=== PATIENT | male | born 1960 | race Asian ===

== ENCOUNTER 2017-09-30 15:27 | Emergency (ER) | payer OTHER ==
[~2017-09-30] VITALS: Ht 165.1 cm; Wt 63.0 kg
[2017-09-30 15:41] VITALS: TEMP 98.4
[2017-09-30 16:39] LABS: PLATELET COUNT 129 K/uL (142-355)
[2017-09-30 16:44] LABS: POTASSIUM 3.6 mmol/L (3.6-5.2)
[2017-09-30 17:24] VITALS: BP 148/96
== END 2017-09-30 17:32 | disposition home or self-care (01) ==
LOC: ED 15:27
DX: M54.5 Low back pain (principal); M25.552 Pain in left hip; M51.9 Unspecified thoracic, thoracolumbar and lumbosacral intervertebral disc disorder
CPT/HCPCS: 36415; 80053; 81000; 85027; 96372; 99283; J1885

== ENCOUNTER 2018-01-31 15:24 | Emergency (ER) | payer OTHER ==
[~2018-01-31] VITALS: Ht 167.6 cm; Wt 60.8 kg
[2018-01-31 15:22] VITALS: TEMP 98.3
[2018-01-31 16:13] LABS: PLATELET COUNT 135 K/uL (142-355)
[2018-01-31 16:21] LABS: POTASSIUM 4.5 mmol/L (3.6-5.2)
[2018-01-31 16:58] VITALS: BP 155/99
== END 2018-01-31 17:02 | disposition home or self-care (01) ==
LOC: ED 15:24
DX: R25.2 Cramp and spasm (principal); K74.69 Other cirrhosis of liver
CPT/HCPCS: 36415; 80053; 80307; 81000; 83735; 85027; 99283

== ENCOUNTER 2018-05-01 19:52 | Inpatient (IN) | payer OTHER ==
[~2018-05-01] VITALS: Ht 167.6 cm; Wt 69.5 kg
[2018-05-01 20:10] VITALS: BP 117/83; TEMP 97.7
[2018-05-01 21:14] LABS: PLATELET COUNT 195 K/uL (142-355)
[2018-05-01 21:37] LABS: POTASSIUM 4.3 mmol/L (3.6-5.2)
[2018-05-02] VITALS (7 sets, daily range): BP systolic 114–161; BP diastolic 72–92; TEMP 98–99.4; Ht 167.6 cm; Wt 69.5 kg
[2018-05-02 05:52] LABS: PLATELET COUNT 150 K/uL (142-355)
[2018-05-02 06:15] LABS: POTASSIUM 4.3 mmol/L (3.6-5.2)
[2018-05-03] VITALS: BP 133/79; TEMP 98.8
[2018-05-03 04:00] VITALS: BP 142/92; TEMP 98.6
[2018-05-03 04:57] LABS: PLATELET COUNT 102 K/uL (142-355)
[2018-05-03 05:27] LABS: POTASSIUM 4.7 mmol/L (3.6-5.2)
[2018-05-03 08:00] VITALS: BP 113/73; TEMP 99.2
[2018-05-03 12:00] VITALS: BP 122/80; TEMP 99
[2018-05-03 16:05] VITALS: BP 124/88; TEMP 98.8
[2018-05-03 20:00] VITALS: BP 144/84; TEMP 98.8
[2018-05-04] VITALS (7 sets, daily range): BP systolic 142–173; BP diastolic 85–98; TEMP 98.2–99.8
[2018-05-04 04:55] LABS: PLATELET COUNT 76 K/uL (142-355)
[2018-05-04 05:10] LABS: POTASSIUM 3.9 mmol/L (3.6-5.2)
[2018-05-05 04:23] VITALS: BP 162/96; TEMP 98.7
[2018-05-05 05:30] LABS: PLATELET COUNT 87 K/uL (142-355)
[2018-05-05 05:53] LABS: POTASSIUM 3.5 mmol/L (3.6-5.2)
[2018-05-05 08:00] VITALS: BP 163/91; TEMP 98.1
[2018-05-05] MEDS ORDERED: FOLI1TAB26 PO (09:47)
[2018-05-05] MEDS ORDERED: METO-837 PO (09:48)
[2018-05-05] MEDS ORDERED: LISI20TA11 PO (09:48)
[2018-05-05] MEDS ORDERED: SIMV20TA2 PO (09:48)
[2018-05-05] MEDS ORDERED: MULTTAB52 PO (09:49)
== END 2018-05-05 11:01 | disposition home or self-care (01) | DRG 439 ==
LOC: ED 19:52 → MED/SURG 21:55
PROVIDERS: Emergency Medicine; Family Medicine; ADMIT Internal Medicine
DX: K85.90 Acute pancreatitis without necrosis or infection, unspecified (principal); N17.8 Other acute kidney failure; N18.3 Chronic kidney disease, stage 3 (moderate); E87.1 Hypo-osmolality and hyponatremia; K56.690 Other partial intestinal obstruction; E44.0 Moderate protein-calorie malnutrition; D61.818 Other pancytopenia; D52.9 Folate deficiency anemia, unspecified; R74.8 Abnormal levels of other serum enzymes; E88.09 Other disorders of plasma-protein metabolism, not elsewhere classified; E78.49 Other hyperlipidemia; R19.09 Other intra-abdominal and pelvic swelling, mass and lump; F10.129 Alcohol abuse with intoxication, unspecified; I12.9 Hypertensive chronic kidney disease with stage 1 through stage 4 chronic kidney disease, or unspecified chronic kidney disease; R73.9 Hyperglycemia, unspecified
CPT/HCPCS: 36415; 74022; 80053; 80061; 81000; 82150; 83036; 83690; 85027; 85651; 86140; 87070; 87205; 93005; 96365; 96374; 96375; 99284; J0360; J1650; J2270; J2405; J3490

== ENCOUNTER 2018-08-21 12:04 | Outpatient (CLI) | payer OTHER ==
[~2018-08-21 12:04] MED LIST: FOLI1TAB26 PO; LISI20TA11 PO; METO-837 PO; MULTTAB52 PO; SIMV20TA2 PO
== END 2018-08-21 20:41 | disposition home or self-care (01) ==
LOC: MRI 12:04
DX: M54.5 Low back pain (principal); M51.36 Other intervertebral disc degeneration, lumbar region; M16.11 Unilateral primary osteoarthritis, right hip; M54.17 Radiculopathy, lumbosacral region; M51.27 Other intervertebral disc displacement, lumbosacral region; R29.898 Other symptoms and signs involving the musculoskeletal system

== ENCOUNTER 2018-09-19 18:03 | Emergency (ER) | payer OTHER ==
[~2018-09-19] VITALS: Ht 167.6 cm; Wt 69.4 kg
[2018-09-19 18:18] VITALS: BP 94/67; TEMP 98
[2018-09-19 20:38] LABS: PLATELET COUNT 134 K/uL (142-355)
[2018-09-19 20:55] LABS: POTASSIUM 3.5 mmol/L (3.6-5.2); SODIUM 131 mmol/L (136-145)
== END 2018-09-19 23:07 | disposition home or self-care (01) ==
LOC: ED 18:03
PROVIDERS: Emergency Medicine
DX: K86.1 Other chronic pancreatitis (principal)
CPT/HCPCS: 36415; 80053; 80307; 80320; 81000; 82150; 82550; 83690; 83735; 84484; 85027; 93005; 96365; 99283; J3490

== ENCOUNTER 2018-09-29 20:06 | Observation (INO) | payer OTHER ==
[~2018-09-29] VITALS: Ht 167.6 cm; Wt 64.9 kg
[2018-09-29 20:35] VITALS: BP 145/98; TEMP 98.3
[2018-09-29 21:31] LABS: PLATELET COUNT 232 K/uL (142-355)
[2018-09-29 21:49] LABS: POTASSIUM 4.8 mmol/L (3.6-5.2)
[2018-09-30 01:35] VITALS: BP 144/90; TEMP 97.6; Ht 167.6 cm; Wt 64.9 kg
[2018-09-30] MEDS ORDERED: FERROUSUL325 MG PO (02:07)
[2018-09-30] MEDS ORDERED: IBU800 MG PO (02:13)
[2018-09-30 04:00] VITALS: BP 146/90; TEMP 97.4
[2018-09-30 06:18] LABS: POTASSIUM 4.2 mmol/L (3.6-5.2)
[2018-09-30 08:00] VITALS: BP 153/96; TEMP 98
[2018-09-30 12:00] VITALS: BP 156/88; TEMP 97.4
[2018-09-30 16:00] VITALS: BP 145/93; TEMP 98.2
[2018-09-30 20:00] VITALS: BP 153/96; TEMP 98.2
[2018-10-01 00:13] VITALS: BP 158/101; TEMP 97.9
[2018-10-01 04:00] VITALS: BP 156/107; TEMP 98.2
[2018-10-01 08:00] VITALS: TEMP 97.6
[2018-10-01 09:45] LABS: POTASSIUM 2.9 mmol/L (3.6-5.2)
[2018-10-01 09:47] LABS: PLATELET COUNT 157 K/uL (142-355)
[2018-10-01 12:00] VITALS: BP 140/100; TEMP 98.1
== END 2018-10-01 14:50 | disposition home or self-care (01) ==
LOC: ED 20:06 → MED/SURG 09-30 00:25
PROVIDERS: Internal Medicine; ADMIT Emergency Medicine
DX: E86.0 Dehydration (principal); E87.1 Hypo-osmolality and hyponatremia; I10 Essential (primary) hypertension; F10.229 Alcohol dependence with intoxication, unspecified; E87.6 Hypokalemia; E78.49 Other hyperlipidemia; E16.1 Other hypoglycemia; K70.9 Alcoholic liver disease, unspecified
CPT/HCPCS: 36415; 80048; 80053; 81000; 82150; 82550; 83690; 83735; 85027; 96360; 96365; 96366; 96375; 99220; 99284; G0378; J7060

== ENCOUNTER 2018-11-10 15:11 | Inpatient (IN) | payer OTHER ==
[~2018-11-10] VITALS: Ht 175.3 cm; Wt 64.2 kg
[~2018-11-10 15:11] MED LIST changes: +FERROUSUL325 MG PO; +IBU800 MG PO
[2018-11-10 15:30] VITALS: BP 143/107; TEMP 97.2
[2018-11-10 17:36] LABS: PLATELET COUNT 131 K/uL (142-355)
[2018-11-10 17:49] LABS: POTASSIUM 5.5 mmol/L (3.6-5.2)
[2018-11-10 21:00] VITALS: BP 145/97; TEMP 97.1
[2018-11-10 21:46] VITALS: BP 149/92; TEMP 98.7; Ht 175.3 cm; Wt 64.2 kg
[2018-11-11] VITALS (7 sets, daily range): BP systolic 109–165; BP diastolic 46–105; TEMP 98.2–99.2
[2018-11-11 05:26] LABS: PLATELET COUNT 91 K/uL (142-355)
[2018-11-11] MEDS ORDERED: LOVASTATIN40 MG PO (11:24)
[2018-11-11] MEDS ORDERED: KP FOLIC ACID1 MG PO (11:25)
[2018-11-12 04:00] VITALS: BP 160/90; TEMP 98.1
[2018-11-12 05:30] LABS: PLATELET COUNT 72 K/uL (142-355)
[2018-11-12 05:35] LABS: POTASSIUM 3.6 mmol/L (3.6-5.2)
[2018-11-12 08:00] VITALS: BP 125/69; TEMP 98.4
[2018-11-12 12:00] VITALS: BP 154/99; TEMP 98.2
[2018-11-12 16:00] VITALS: BP 131/81; TEMP 98.3
[2018-11-12 20:00] VITALS: BP 141/85; TEMP 98.9
[2018-11-13] VITALS: BP 137/86; TEMP 98.4
[2018-11-13 04:00] VITALS: BP 151/95; TEMP 98.2
[2018-11-13 06:41] LABS: PLATELET COUNT 78 K/uL (142-355)
[2018-11-13 08:00] VITALS: BP 155/96; TEMP 98.1
[2018-11-13 16:00] VITALS: BP 170/90; TEMP 98.3
[2018-11-13 19:55] VITALS: BP 176/98; TEMP 97.9
[2018-11-13 23:46] VITALS: BP 140/86; TEMP 98.5
[2018-11-14 03:56] VITALS: BP 158/98; TEMP 98.6
[2018-11-14 05:31] LABS: PLATELET COUNT 95 K/uL (142-355)
[2018-11-14 06:35] LABS: POTASSIUM 3.1 mmol/L (3.6-5.2)
[2018-11-14 08:00] VITALS: BP 160/105; TEMP 98.4
[2018-11-14 12:00] VITALS: BP 157/104; TEMP 98.1
== END 2018-11-14 14:30 | disposition home or self-care (01) | DRG 439 ==
LOC: ED 15:11 → MED/SURG 20:30
PROVIDERS: Family Medicine; Internal Medicine; ADMIT Emergency Medicine
DX: K85.20 Alcohol induced acute pancreatitis without necrosis or infection (principal); E87.1 Hypo-osmolality and hyponatremia; E87.2 Acidosis; N17.8 Other acute kidney failure; I10 Essential (primary) hypertension; I25.10 Atherosclerotic heart disease of native coronary artery without angina pectoris; K70.30 Alcoholic cirrhosis of liver without ascites; F10.10 Alcohol abuse, uncomplicated; E80.6 Other disorders of bilirubin metabolism; K70.40 Alcoholic hepatic failure without coma; E87.6 Hypokalemia; E86.0 Dehydration; K86.0 Alcohol-induced chronic pancreatitis
CPT/HCPCS: 36415; 80053; 80320; 81000; 82150; 83690; 83735; 85027; 96360; 96365; 99284; J3411; J3490; Q9963

== ENCOUNTER 2018-11-27 13:37 | Emergency (ER) | payer OTHER ==
[~2018-11-27] VITALS: Ht 162.6 cm; Wt 61.2 kg
[~2018-11-27 13:37] MED LIST changes: +KP FOLIC ACID1 MG PO; +LOVASTATIN40 MG PO
[2018-11-27 13:40] VITALS: TEMP 99.1
[2018-11-27 17:30] VITALS: BP 163/102
== END 2018-11-27 17:35 | disposition home or self-care (01) ==
LOC: ED 13:37
PROC: 0KQ10ZZ Repair Facial Muscle, Open Approach (ICD-10-PCS; principal; 2018-11-27)
DX: S01.81XA Laceration without foreign body of other part of head, initial encounter (principal); S09.12XA Laceration of muscle and tendon of head, initial encounter; W01.198A Fall on same level from slipping, tripping and stumbling with subsequent striking against other object, initial encounter; Y92.89 Other specified places as the place of occurrence of the external cause
CPT/HCPCS: 90471; 90715; 99283

== ENCOUNTER 2018-12-08 09:41 | Emergency (ER) | payer OTHER ==
[~2018-12-08] VITALS: Ht 162.6 cm; Wt 61.2 kg
[2018-12-08 11:55] VITALS: BP 136/81; TEMP 98
== END 2018-12-08 11:55 | disposition home or self-care (01) ==
LOC: ED 09:41
DX: Z48.02 Encounter for removal of sutures (principal)

== ENCOUNTER 2019-03-23 15:37 | Emergency (ER) | payer OTHER ==
[~2019-03-23] VITALS: Ht 167.6 cm; Wt 61.2 kg
[2019-03-23 16:51] LABS: PLATELET COUNT 114 K/uL (142-355)
[2019-03-23 16:55] LABS: POTASSIUM 3.3 mmol/L (3.6-5.2)
[2019-03-23 18:30] VITALS: BP 144/72; TEMP 98.1
== END 2019-03-23 18:30 | disposition home or self-care (01) ==
LOC: ED 15:37
PROVIDERS: Emergency Medicine
DX: S90.852A Superficial foreign body, left foot, initial encounter (principal); M10.9 Gout, unspecified; L03.116 Cellulitis of left lower limb
CPT/HCPCS: 80053; 84550; 85027; 96372; 99283; J0696; J2930

== ENCOUNTER 2019-04-18 16:23 | Emergency (ER) | payer OTHER ==
[~2019-04-18] VITALS: Ht 33 cm; Wt 0.5 kg
[2019-04-18 17:21] LABS: PLATELET COUNT 131 K/uL (142-355)
[2019-04-18 18:56] LABS: POTASSIUM 5.2 mmol/L (3.6-5.2); SODIUM 135 mmol/L (136-145)
[2019-04-19 00:54] VITALS: BP 135/73; TEMP 99
== END 2019-04-19 00:55 | disposition short-term general hospital (02) ==
LOC: ED 16:23
PROVIDERS: Emergency Medicine
DX: I48.92 Unspecified atrial flutter (principal); F10.239 Alcohol dependence with withdrawal, unspecified
CPT/HCPCS: 80053; 80320; 82550; 83735; 83880; 84484; 85027; 93005; 96361; 96365; 96375; 96376; 99285; J2060; J3490

== ENCOUNTER 2019-04-19 00:58 | Outpatient (CLI) | payer OTHER | END 2019-04-19 01:28 | disposition short-term general hospital (02) | LOC: AMB 00:58 | DX: I48.92 Unspecified atrial flutter (principal); R94.31 Abnormal electrocardiogram [ECG] [EKG] | CPT/HCPCS: A0425; A0427 ==

== ENCOUNTER 2020-02-08 05:48 | Observation (INO) | payer OTHER ==
[~2020-02-08] VITALS: Ht 162.6 cm; Wt 67.8 kg
[2020-02-08] VITALS (12 sets, daily range): BP systolic 88–132; BP diastolic 44–94; TEMP 95.3–98.3; Ht 162.6 cm; Wt 67.8 kg
[2020-02-08 06:38] LABS: PLATELET COUNT 150 K/uL (142-355)
[2020-02-08 06:48] LABS: POTASSIUM 4.4 mmol/L (3.6-5.2); SODIUM 126 mmol/L (136-145)
[2020-02-08] MEDS ORDERED: METO50TA27 PO (17:06)
[2020-02-08] MEDS ORDERED: ZESTRIL40 MG PO (17:07)
[2020-02-08] MEDS ORDERED: DILT-XR180 MG PO (17:08)
[2020-02-08] MEDS ORDERED: KP FOLIC ACID1 MG PO (17:09)
[2020-02-09 00:14] VITALS: BP 122/64; TEMP 98.3
[2020-02-09 04:00] VITALS: BP 127/83; TEMP 97.9
[2020-02-09 05:47] LABS: PLATELET COUNT 96 K/uL (142-355)
[2020-02-09 05:58] LABS: POTASSIUM 4.5 mmol/L (3.6-5.2)
[2020-02-09 08:00] VITALS: BP 157/79; TEMP 97.6
[2020-02-09 12:00] VITALS: BP 107/74; TEMP 97.8
[2020-02-09 16:00] VITALS: BP 168/83; TEMP 98.5
[2020-02-09 20:00] VITALS: BP 142/91; TEMP 98.3
[2020-02-10] VITALS: BP 142/75; TEMP 98.5
[2020-02-10 04:00] VITALS: BP 161/77; TEMP 98.6
[2020-02-10 04:47] LABS: PLATELET COUNT 89 K/uL (142-355)
[2020-02-10 08:00] VITALS: BP 152/83; TEMP 98.2
[2020-02-10 11:36] LABS: POTASSIUM 4.1 mmol/L (3.6-5.2)
[2020-02-10 12:00] VITALS: BP 162/78; TEMP 98.2
[2020-02-10 16:00] VITALS: BP 162/87; TEMP 98.8
[2020-02-10] MEDS ORDERED: LISI20TA11 PO (16:27)
[2020-02-10] MEDS ORDERED: DILT-XR120 MG PO (16:27)
[2020-02-10] MEDS ORDERED: METO-837 PO (16:29)
[2020-02-10] MEDS ORDERED: LEVAQUIN250 MG PO (16:30)
== END 2020-02-10 17:30 | disposition home or self-care (01) ==
LOC: ED 05:48 → MED/SURG 08:00
PROVIDERS: Internal Medicine; ADMIT Family Medicine
DX: A41.89 Other specified sepsis (principal); E87.2 Acidosis; E87.1 Hypo-osmolality and hyponatremia; D69.6 Thrombocytopenia, unspecified; I10 Essential (primary) hypertension; F10.20 Alcohol dependence, uncomplicated; T68.XXXA Hypothermia, initial encounter; N17.8 Other acute kidney failure
CPT/HCPCS: 36415; 80048; 80053; 80320; 82150; 83605; 83690; 83735; 84484; 85027; 85379; 87040; 87635; 93005; 96360; 96365; 96375; 99220; 99284; G0378; J0696; J3490; J7060; U0003

== ENCOUNTER 2020-05-09 12:42 | Outpatient (CLI) | payer OTHER ==
[~2020-05-09 12:42] MED LIST changes: +DILT-XR120 MG PO; +DILT-XR180 MG PO; +LEVAQUIN250 MG PO; +METO50TA27 PO; +ZESTRIL40 MG PO
== END 2020-05-09 21:39 | disposition home or self-care (01) ==
LOC: US 12:42
PROVIDERS: ATTEND Student in an Organized Health Care Education/Training Program
DX: N17.9 Acute kidney failure, unspecified (principal); I10 Essential (primary) hypertension; E78.49 Other hyperlipidemia

== ENCOUNTER 2020-06-21 09:32 | Outpatient (CLI) | payer OTHER ==
[2020-06-21 10:03] LABS: PLATELET COUNT 158 K/uL (142-355)
[2020-06-21 10:12] LABS: POTASSIUM 5.4 mmol/L (3.6-5.2)
== END 2020-06-21 21:30 | disposition home or self-care (01) ==
LOC: LABW 09:32
PROVIDERS: ATTEND Student in an Organized Health Care Education/Training Program
DX: N17.9 Acute kidney failure, unspecified (principal); E87.1 Hypo-osmolality and hyponatremia
CPT/HCPCS: 36415; 80053; 80074; 81000; 82043; 82306; 82436; 82533; 82570; 83036; 83735; 83930; 83935; 83970; 84100; 84133; 84155; 84300; 84436; 84443; 84550; 85027; 86038; 86160; 86592; 86701; 86702; 87389

== ENCOUNTER 2020-06-30 07:45 | Emergency (ER) | payer OTHER ==
[~2020-06-30] VITALS: Ht 162.6 cm; Wt 67.6 kg
[2020-06-30 08:36] LABS: PLATELET COUNT 121 K/uL (142-355)
[2020-06-30 08:50] LABS: POTASSIUM 4.6 mmol/L (3.6-5.2); SODIUM 132 mmol/L (136-145)
[2020-06-30 08:59] LABS: PARTIAL THROMBOPLASTIN TIME 25.9 SECONDS (24.5-33.6)
[2020-06-30 09:45] VITALS: BP 130/93; TEMP 98.2
== END 2020-06-30 09:52 | disposition home or self-care (01) ==
LOC: ED 07:45
PROVIDERS: Hospitalist
DX: R07.89 Other chest pain (principal); M25.512 Pain in left shoulder; N18.9 Chronic kidney disease, unspecified
CPT/HCPCS: 80053; 82550; 82553; 83880; 84484; 85027; 85610; 85730; 93005; 96374; 96375; 99284; J1885; J2930

== ENCOUNTER 2020-08-18 13:00 | Emergency (ER) | payer OTHER ==
[~2020-08-18] VITALS: Ht 162.6 cm; Wt 67.6 kg
[2020-08-18 13:15] VITALS: TEMP 97.9
[2020-08-18 14:00] LABS: PLATELET COUNT 171 K/uL (142-355)
[2020-08-18 14:09] LABS: POTASSIUM 4.6 mmol/L (3.6-5.2)
[2020-08-18 14:22] LABS: PARTIAL THROMBOPLASTIN TIME 25.7 SECONDS (24.5-33.6)
[2020-08-18 14:30] VITALS: BP 98/60
== END 2020-08-18 14:30 | disposition home or self-care (01) ==
LOC: ED 13:00
PROVIDERS: Hospitalist
DX: K64.4 Residual hemorrhoidal skin tags (principal)
CPT/HCPCS: 80048; 85027; 85610; 85730; 99283

== ENCOUNTER 2020-08-26 10:09 | Outpatient (CLI) | payer OTHER ==
[2020-08-26 10:43] LABS: PLATELET COUNT 90 K/uL (142-355)
[2020-08-26 10:58] LABS: POTASSIUM 4.6 mmol/L (3.6-5.2)
== END 2020-08-26 19:28 | disposition home or self-care (01) ==
LOC: LABW 10:09
PROVIDERS: ATTEND Student in an Organized Health Care Education/Training Program
DX: E87.1 Hypo-osmolality and hyponatremia (principal); Z79.899 Other long term (current) drug therapy; E11.65 Type 2 diabetes mellitus with hyperglycemia; E55.9 Vitamin D deficiency, unspecified; E78.5 Hyperlipidemia, unspecified
CPT/HCPCS: 36415; 80053; 81000; 82570; 83036; 83735; 83970; 84155; 85027

== ENCOUNTER 2020-12-07 17:49 | Emergency (ER) | payer OTHER ==
[~2020-12-07] VITALS: Ht 162.6 cm; Wt 67.6 kg
[2020-12-07 19:38] LABS: PLATELET COUNT 206 K/uL (142-355)
[2020-12-07 19:49] LABS: POTASSIUM 4.1 mmol/L (3.6-5.2)
[2020-12-07 21:10] VITALS: BP 112/59; TEMP 97.6
== END 2020-12-07 21:10 | disposition home or self-care (01) ==
LOC: ED 17:49
PROVIDERS: Family Medicine
DX: E16.1 Other hypoglycemia (principal); E86.0 Dehydration; I48.91 Unspecified atrial fibrillation
CPT/HCPCS: 36415; 80053; 80320; 82550; 82948; 84484; 85027; 93005; 96360; 96365; 96375; 99284; J2405; J7060

== ENCOUNTER 2021-03-14 16:15 | Emergency (ER) | payer OTHER ==
[~2021-03-14] VITALS: Ht 162.6 cm; Wt 67.6 kg
[2021-03-14 16:28] VITALS: TEMP 97.6
[2021-03-14 17:17] LABS: PLATELET COUNT 122 K/uL (142-355)
[2021-03-14 17:33] LABS: POTASSIUM 3.4 mmol/L (3.6-5.2)
[2021-03-14 18:31] VITALS: BP 143/83
== END 2021-03-14 18:58 | disposition short-term general hospital (02) ==
LOC: ED 16:15
PROVIDERS: Emergency Medicine Emergency Medical Services
DX: R07.89 Other chest pain (principal); N17.8 Other acute kidney failure; Z91.81 History of falling; Z11.52 Encounter for screening for COVID-19
CPT/HCPCS: 36415; 80053; 80320; 83735; 84484; 85027; 85610; 87635; 93005; 96360; 99284; U0003

== ENCOUNTER 2021-05-04 19:51 | Inpatient (IN) | payer OTHER ==
[~2021-05-04] VITALS: Ht 162.6 cm; Wt 73.1 kg
[2021-05-04 19:55] VITALS: BP 109/74; TEMP 98.4
[2021-05-04 20:34] LABS: PLATELET COUNT 99 K/uL (142-355)
[2021-05-04 20:40] LABS: POTASSIUM 3.3 mmol/L (3.6-5.2)
[2021-05-04 21:00] VITALS: BP 114/76
[2021-05-04 22:52] VITALS: BP 132/73; TEMP 98.2; Ht 162.6 cm; Wt 73.1 kg
[2021-05-04 23:34] VITALS: BP 132/73; TEMP 98.2
[2021-05-05 04:19] VITALS: BP 110/72; TEMP 99.5
[2021-05-05 08:00] VITALS: BP 130/77; TEMP 97.9
[2021-05-05] MEDS ORDERED: METO50TA27 PO (11:15)
[2021-05-05] MEDS ORDERED: FEROSUL325 MG PO (11:18)
[2021-05-05 12:00] VITALS: BP 124/72; TEMP 99.3
[2021-05-05 16:00] VITALS: BP 128/97; TEMP 98.4
[2021-05-05 17:44] LABS: POTASSIUM 4.6 mmol/L (3.6-5.2)
[2021-05-05 20:00] VITALS: BP 150/84; TEMP 99.8
[2021-05-05 21:18] VITALS: BP 150/84; TEMP 99.8
[2021-05-06] VITALS: BP 142/85; TEMP 100.3
[2021-05-06 00:59] LABS: POTASSIUM 4.2 mmol/L (3.6-5.2)
[2021-05-06 04:00] VITALS: BP 138/79; TEMP 99.6
[2021-05-06 05:26] LABS: PLATELET COUNT 46 K/uL (142-355)
[2021-05-06 05:33] LABS: POTASSIUM 4.2 mmol/L (3.6-5.2)
[2021-05-06 08:00] VITALS: BP 150/86; TEMP 99.3
[2021-05-06 12:00] VITALS: BP 138/80; TEMP 100
[2021-05-06 16:00] VITALS: BP 136/82; TEMP 98.8
[2021-05-06 20:00] VITALS: BP 134/84; TEMP 98.9
[2021-05-07 00:05] VITALS: BP 164/96; TEMP 99
[2021-05-07 04:00] VITALS: BP 153/86; TEMP 99.1
[2021-05-07 04:58] LABS: PLATELET COUNT 57 K/uL (142-355)
[2021-05-07 05:09] LABS: POTASSIUM 4.3 mmol/L (3.6-5.2)
[2021-05-07 08:00] VITALS: BP 141/82; TEMP 98.5
[2021-05-07 12:00] VITALS: BP 141/82; TEMP 98.5
[2021-05-07 16:00] VITALS: BP 153/92; TEMP 99.1
[2021-05-07 20:00] VITALS: BP 145/85; TEMP 98.9
[2021-05-08] VITALS: BP 157/89; TEMP 99.2
[2021-05-08 04:00] VITALS: BP 158/91; TEMP 99.8
[2021-05-08 05:29] LABS: PLATELET COUNT 74 K/uL (142-355)
[2021-05-08 08:00] VITALS: BP 157/85; TEMP 97
[2021-05-08 12:00] VITALS: BP 151/90; TEMP 99.2
[2021-05-08 16:00] VITALS: BP 164/95; TEMP 98.6
[2021-05-08 19:38] VITALS: BP 165/96; TEMP 99.2
[2021-05-09 00:10] VITALS: BP 163/92; TEMP 99.8
[2021-05-09 04:05] VITALS: BP 157/93; TEMP 98.9
[2021-05-09 06:01] LABS: POTASSIUM 4.2 mmol/L (3.6-5.2)
[2021-05-09 08:00] VITALS: BP 160/89; TEMP 98.8
[2021-05-09 09:21] LABS: PLATELET COUNT 102 K/uL (142-355)
[2021-05-09] MEDS ORDERED: METO25TA4 PO (11:19)
== END 2021-05-09 12:25 | disposition home or self-care (01) | DRG 439 ==
LOC: ED 19:51 → MED/SURG 22:00
PROVIDERS: ADMIT Hospitalist; ATTEND Internal Medicine
DX: K85.20 Alcohol induced acute pancreatitis without necrosis or infection (principal); E87.1 Hypo-osmolality and hyponatremia; N17.8 Other acute kidney failure; E87.6 Hypokalemia; K70.9 Alcoholic liver disease, unspecified; F10.20 Alcohol dependence, uncomplicated; R00.0 Tachycardia, unspecified; D69.6 Thrombocytopenia, unspecified
CPT/HCPCS: 36415; 80053; 80320; 81000; 83690; 84484; 85008; 85027; 87040; 87635; 93005; 94760; 96360; 96375; 99284; J0132; J1956; J2270; J2405; J3490; U0003

== ENCOUNTER 2021-06-10 07:25 | Emergency (ER) | payer OTHER ==
[~2021-06-10] VITALS: Ht 162.6 cm; Wt 63.0 kg
[~2021-06-10 07:25] MED LIST changes: +FEROSUL325 MG PO; +METO25TA4 PO
[2021-06-10 08:14] LABS: PLATELET COUNT 200 K/uL (142-355)
[2021-06-10 08:22] LABS: PARTIAL THROMBOPLASTIN TIME 27.9 SECONDS (24.5-33.6); POTASSIUM 2.7 mmol/L (3.6-5.2)
[2021-06-10 10:04] VITALS: BP 151/98; TEMP 98
== END 2021-06-10 10:07 | disposition still patient (30) ==
LOC: ED 07:25
PROVIDERS: Hospitalist
DX: R60.0 Localized edema (principal); E87.6 Hypokalemia; I50.9 Heart failure, unspecified; R79.89 Other specified abnormal findings of blood chemistry; K74.69 Other cirrhosis of liver
CPT/HCPCS: 80053; 82550; 83880; 84484; 85027; 85610; 85730; 93005; 96365; 99284

== ENCOUNTER 2021-06-12 10:54 | Outpatient (CLI) | payer OTHER ==
[2021-06-12 11:19] LABS: PLATELET COUNT 217 K/uL (142-355)
== END 2021-06-12 20:25 | disposition home or self-care (01) ==
LOC: LABW 10:54
PROVIDERS: ATTEND Student in an Organized Health Care Education/Training Program
DX: I12.9 Hypertensive chronic kidney disease with stage 1 through stage 4 chronic kidney disease, or unspecified chronic kidney disease (principal); N18.31 Chronic kidney disease, stage 3a; E87.1 Hypo-osmolality and hyponatremia; E55.9 Vitamin D deficiency, unspecified; E87.5 Hyperkalemia; E79.0 Hyperuricemia without signs of inflammatory arthritis and tophaceous disease; E87.2 Acidosis
CPT/HCPCS: 36415; 80053; 81000; 82306; 82570; 83735; 83970; 84100; 84155; 84550; 85027

== ENCOUNTER 2022-03-08 09:16 | Outpatient (CLI) | payer OTHER ==
[2022-03-08 10:37] LABS: POTASSIUM 5.3 mmol/L (3.6-5.2)
== END 2022-03-08 19:38 | disposition home or self-care (01) ==
LOC: LABW 09:16
PROVIDERS: ATTEND Student in an Organized Health Care Education/Training Program
DX: I12.9 Hypertensive chronic kidney disease with stage 1 through stage 4 chronic kidney disease, or unspecified chronic kidney disease (principal); N18.31 Chronic kidney disease, stage 3a; E87.1 Hypo-osmolality and hyponatremia; E55.9 Vitamin D deficiency, unspecified; E87.5 Hyperkalemia; E79.0 Hyperuricemia without signs of inflammatory arthritis and tophaceous disease; D63.1 Anemia in chronic kidney disease; R80.8 Other proteinuria
CPT/HCPCS: 36415; 80053; 81002; 82306; 82570; 83735; 83970; 84100; 84156; 84550; 85018

== ENCOUNTER 2022-06-06 04:37 | Observation (INO) | payer OTHER ==
[2022-06-06] VITALS (13 sets, daily range): BP systolic 78–110; BP diastolic 44–68; TEMP 97.5–98.8; Ht 170.2 cm; Wt 67.4 kg
[~2022-06-06] VITALS: Ht 170.2 cm; Wt 67.4 kg
[2022-06-06 05:40] LABS: PLATELET COUNT 70 K/uL (142-355)
[2022-06-06 05:56] LABS: POTASSIUM 3.7 mmol/L (3.6-5.2)
[2022-06-06 09:48] LABS: POTASSIUM 4.1 mmol/L (3.6-5.2)
[2022-06-06] MEDS ORDERED: METO50TA27 PO (13:49)
[2022-06-06] MEDS ORDERED: ALLO100T22 PO (13:50)
[2022-06-06] MEDS ORDERED: DILT-XR120 MG PO (15:07)
[2022-06-07] VITALS (7 sets, daily range): BP systolic 107–140; BP diastolic 65–80; TEMP 98.2–98.8
[2022-06-07 05:20] LABS: PLATELET COUNT 47 K/uL (142-355)
[2022-06-07 05:34] LABS: POTASSIUM 3.8 mmol/L (3.6-5.2)
[2022-06-08 03:31] VITALS: BP 131/82; TEMP 98.6
[2022-06-08 04:28] LABS: PLATELET COUNT 62 K/uL (142-355)
[2022-06-08 04:55] LABS: POTASSIUM 3.7 mmol/L (3.6-5.2)
[2022-06-08 08:00] VITALS: BP 134/85; TEMP 99
[2022-06-08 12:00] VITALS: BP 144/75; TEMP 98.3
[2022-06-08] MEDS ORDERED: METO-837 PO (12:44)
== END 2022-06-08 14:42 | disposition home or self-care (01) ==
LOC: ED 04:37 → MED/SURG 06:35
PROVIDERS: ADMIT Emergency Medicine; ATTEND Internal Medicine
DX: E87.1 Hypo-osmolality and hyponatremia (principal); D61.818 Other pancytopenia; I95.89 Other hypotension; R00.1 Bradycardia, unspecified; R11.2 Nausea with vomiting, unspecified; A08.8 Other specified intestinal infections; K21.9 Gastro-esophageal reflux disease without esophagitis; K86.0 Alcohol-induced chronic pancreatitis; F10.288 Alcohol dependence with other alcohol-induced disorder; E78.49 Other hyperlipidemia; D64.89 Other specified anemias; K70.30 Alcoholic cirrhosis of liver without ascites; I12.9 Hypertensive chronic kidney disease with stage 1 through stage 4 chronic kidney disease, or unspecified chronic kidney disease; N18.4 Chronic kidney disease, stage 4 (severe); N17.8 Other acute kidney failure
CPT/HCPCS: 36415; 80053; 80074; 80307; 80320; 81002; 82150; 82550; 82607; 82728; 82746; 83540; 83690; 83735; 84484; 85008; 85027; 87635; 93005; 96360; 96361; 96374; 99220; 99284; G0378; J3411; J3475; J3490; U0003

== ENCOUNTER 2022-07-31 14:11 | Emergency (ER) | payer OTHER ==
[~2022-07-31] VITALS: Ht 170.2 cm; Wt 59.9 kg
[~2022-07-31 14:11] MED LIST changes: +ALLO100T22 PO
[2022-07-31 14:15] VITALS: BP 138/89; TEMP 97.8
== END 2022-07-31 16:02 | disposition home or self-care (01) ==
LOC: ED 14:11
DX: M54.59 Other low back pain (principal); G89.29 Other chronic pain; M51.36 Other intervertebral disc degeneration, lumbar region
CPT/HCPCS: 80307; 96372; 99283; J1885

== ENCOUNTER 2022-08-31 10:36 | Emergency (ER) | payer OTHER ==
[~2022-08-31] VITALS: Ht 170.2 cm; Wt 69.4 kg
[2022-08-31 10:54] VITALS: TEMP 98.7
[2022-08-31 11:22] LABS: PLATELET COUNT 153 K/uL (142-355)
[2022-08-31 11:30] LABS: POTASSIUM 3.4 mmol/L (3.6-5.2)
[2022-08-31 12:50] VITALS: BP 166/92
== END 2022-08-31 12:50 | disposition home or self-care (01) ==
LOC: ED 10:36
PROVIDERS: Internal Medicine
DX: I10 Essential (primary) hypertension (principal)
CPT/HCPCS: 36415; 80053; 80307; 83880; 85027; 93005; 99284

== ENCOUNTER 2022-12-15 07:06 | Emergency (ER) | payer OTHER ==
[~2022-12-15] VITALS: Ht 170.2 cm; Wt 63.0 kg
[2022-12-15 07:15] VITALS: TEMP 98.1
[2022-12-15 09:30] VITALS: BP 125/75
== END 2022-12-15 09:38 | disposition home or self-care (01) ==
LOC: ED 07:06
DX: T78.40XA Allergy, unspecified, initial encounter (principal); F17.210 Nicotine dependence, cigarettes, uncomplicated
CPT/HCPCS: 36415; 96361; 96374; 96375; 99284; J1200; J2405; J2930

== ENCOUNTER 2022-12-17 07:31 | Emergency (ER) | payer OTHER ==
[~2022-12-17] VITALS: Ht 162.6 cm; Wt 63.0 kg
[2022-12-17 07:37] VITALS: BP 122/77; TEMP 98.3
== END 2022-12-17 08:54 | disposition home or self-care (01) ==
LOC: ED 07:31
DX: L50.9 Urticaria, unspecified (principal); L20.9 Atopic dermatitis, unspecified
CPT/HCPCS: 36415; 96365; 96366; 96372; 96375; 99283; 99284; J1200

== ENCOUNTER 2023-01-16 06:50 | Inpatient (IN) | payer OTHER ==
[~2023-01-16] VITALS: Ht 167.6 cm; Wt 73.1 kg
[~2023-01-16 06:50] MED LIST changes: +MAGN400T4 PO
[2023-01-16 07:02] VITALS: BP 128/78; TEMP 98.2
[2023-01-16 07:30] VITALS: BP 114/58
[2023-01-16 07:57] LABS: POTASSIUM 2.9 mmol/L (3.6-5.2)
[2023-01-16 08:15] VITALS: BP 116/67
[2023-01-16 08:52] LABS: PLATELET COUNT 55 K/uL (142-355)
[2023-01-16 09:55] VITALS: BP 110/72
[2023-01-16 17:45] VITALS: BP 107/68; TEMP 97.8; Ht 167.6 cm; Wt 73.1 kg
[2023-01-16 20:00] VITALS: BP 114/62; TEMP 98.2
[2023-01-16] MEDS ORDERED: VITAMIN D50000 UNIT PO (20:38)
[2023-01-16] MEDS ORDERED: METO50TA27 PO (20:38)
[2023-01-16] MEDS ORDERED: DILTIAZEM HYDR120 M2 PO (20:39)
[2023-01-16] MEDS ORDERED: CLARITIN10 M1 PO (20:39)
[2023-01-17] VITALS: BP 111/67; TEMP 98.5
[2023-01-17 04:00] VITALS: BP 121/69; TEMP 97.3
[2023-01-17 07:56] LABS: PLATELET COUNT 56 K/uL (142-355)
[2023-01-17 08:00] VITALS: BP 118/71; TEMP 98
[2023-01-17 08:30] LABS: POTASSIUM 4.2 mmol/L (3.6-5.2)
[2023-01-17 12:00] VITALS: BP 124/74; TEMP 98.1
[2023-01-17 16:00] VITALS: BP 168/78; TEMP 98.1
[2023-01-17 20:00] VITALS: BP 148/83; TEMP 98.2
[2023-01-18] VITALS: BP 147/82; TEMP 98.2
[2023-01-18 04:00] VITALS: BP 136/78; TEMP 98.4
[2023-01-18 07:07] LABS: PLATELET COUNT 65 K/uL (142-355)
[2023-01-18 07:42] LABS: POTASSIUM 3.5 mmol/L (3.6-5.2)
[2023-01-18 08:00] VITALS: BP 147/85; TEMP 98.2
[2023-01-18 12:00] VITALS: BP 141/79; TEMP 98.5
[2023-01-18 16:00] VITALS: BP 161/89; TEMP 98.4
[2023-01-18 20:20] VITALS: BP 155/86; TEMP 99
[2023-01-19 00:33] VITALS: BP 154/84; TEMP 98.7
[2023-01-19 04:21] VITALS: BP 147/80; TEMP 98.6
[2023-01-19 07:39] LABS: PLATELET COUNT 65 K/uL (142-355)
[2023-01-19 08:18] LABS: POTASSIUM 3.5 mmol/L (3.6-5.2)
[2023-01-19 08:24] VITALS: BP 136/89; TEMP 98.3
[2023-01-19 12:07] VITALS: BP 137/84; TEMP 98.7
[2023-01-19 16:00] VITALS: BP 146/88; TEMP 98.4
[2023-01-19 20:30] VITALS: BP 145/81; TEMP 97.8
[2023-01-20] VITALS (7 sets, daily range): BP systolic 124–161; BP diastolic 70–86; TEMP 98–99.3
[2023-01-20 05:51] LABS: PLATELET COUNT 71 K/uL (142-355)
[2023-01-20 06:03] LABS: POTASSIUM 3.6 mmol/L (3.6-5.2)
[2023-01-21 03:35] VITALS: BP 123/72; TEMP 99.2
[2023-01-21 05:52] LABS: POTASSIUM 3.7 mmol/L (3.6-5.2)
[2023-01-21 06:29] LABS: PLATELET COUNT 74 K/uL (142-355)
[2023-01-21 08:00] VITALS: BP 135/78; TEMP 99.3
[2023-01-21 12:00] VITALS: BP 148/82; TEMP 99
[2023-01-21 16:00] VITALS: BP 142/77; BP 159/70; TEMP 98.9; TEMP 99
[2023-01-21 19:54] VITALS: BP 137/69; TEMP 100.8
[2023-01-21 23:33] VITALS: BP 169/91; TEMP 100.1
[2023-01-22 04:00] VITALS: BP 143/76; TEMP 99.8
[2023-01-22 05:56] LABS: PLATELET COUNT 88 K/uL (142-355)
[2023-01-22 06:30] LABS: POTASSIUM 3.7 mmol/L (3.6-5.2); SODIUM 136 mmol/L (136-145)
[2023-01-22 07:46] VITALS: BP 132/78; TEMP 99.5
[2023-01-22 11:30] VITALS: BP 138/74; TEMP 99.4
[2023-01-22 16:00] VITALS: BP 154/71; TEMP 99.4
[2023-01-22 19:42] VITALS: BP 150/85; TEMP 99.7
[2023-01-22 23:37] VITALS: BP 136/70; TEMP 99.5
[2023-01-23 03:37] VITALS: BP 127/66; TEMP 99.2
[2023-01-23 04:32] LABS: PLATELET COUNT 95 K/uL (142-355)
[2023-01-23 05:46] LABS: POTASSIUM 3.6 mmol/L (3.6-5.2)
[2023-01-23 08:00] VITALS: BP 116/64; TEMP 97.6
[2023-01-23 11:53] VITALS: BP 139/75; TEMP 99.4
[2023-01-23 15:55] VITALS: BP 130/67; TEMP 98.6
[2023-01-23 19:50] VITALS: BP 138/78; TEMP 99.6
[2023-01-24] VITALS (13 sets, daily range): BP systolic 120–178; BP diastolic 59–87; TEMP 98.3–99
[2023-01-24 08:13] LABS: PLATELET COUNT 122 K/uL (142-355)
[2023-01-24 09:02] LABS: POTASSIUM 3.5 mmol/L (3.6-5.2)
[2023-01-25] VITALS (9 sets, daily range): BP systolic 126–162; BP diastolic 67–91; TEMP 98–98.9
[2023-01-25 08:00] LABS: PLATELET COUNT 130 K/uL (142-355)
[2023-01-25 08:34] LABS: POTASSIUM 3.4 mmol/L (3.6-5.2)
[2023-01-26] VITALS: BP 147/80; TEMP 98.7
[2023-01-26 03:50] LABS: PLATELET COUNT 145 K/uL (142-355)
[2023-01-26 04:00] VITALS: BP 156/85; TEMP 98.2
[2023-01-26 04:20] LABS: POTASSIUM 3.3 mmol/L (3.6-5.2)
[2023-01-26 07:59] VITALS: BP 155/85; TEMP 98.6
[2023-01-26 12:00] VITALS: BP 167/89; TEMP 98.8
[2023-01-26 16:00] VITALS: BP 165/89; TEMP 98.6
[2023-01-26 20:00] VITALS: BP 172/90; TEMP 99.2
[2023-01-27] VITALS: BP 146/78; TEMP 99
[2023-01-27 04:00] VITALS: BP 154/87; TEMP 98.9
[2023-01-27 08:00] VITALS: BP 159/87; TEMP 98.7
[2023-01-27 08:37] LABS: PLATELET COUNT 168 K/uL (142-355)
[2023-01-27 09:22] LABS: POTASSIUM 3.2 mmol/L (3.6-5.2)
== END 2023-01-27 12:38 | disposition home or self-care (01) | DRG 558 ==
LOC: ED 06:50 → MED/SURG 09:58
PROVIDERS: Internal Medicine Endocrinology, Diabetes & Metabolism; ADMIT Family Medicine; ATTEND Internal Medicine
PROC: 30233N1 Transfusion of Nonautologous Red Blood Cells into Peripheral Vein, Percutaneous Approach (ICD-10-PCS; principal; 2023-01-24)
DX: M62.82 Rhabdomyolysis (principal); R53.1 Weakness; R63.0 Anorexia; F10.10 Alcohol abuse, uncomplicated; I95.89 Other hypotension; E87.1 Hypo-osmolality and hyponatremia; E87.6 Hypokalemia; R94.5 Abnormal results of liver function studies; N18.9 Chronic kidney disease, unspecified; K70.10 Alcoholic hepatitis without ascites; D69.6 Thrombocytopenia, unspecified; I12.9 Hypertensive chronic kidney disease with stage 1 through stage 4 chronic kidney disease, or unspecified chronic kidney disease; Z72.0 Tobacco use; D64.89 Other specified anemias; E83.42 Hypomagnesemia; R26.81 Unsteadiness on feet; M25.562 Pain in left knee; R22.42 Localized swelling, mass and lump, left lower limb; M10.9 Gout, unspecified; Z68.20 Body mass index [BMI] 20.0-20.9, adult
CPT/HCPCS: 36415; 80053; 80307; 81002; 82550; 83735; 85007; 85008; 85027; 86850; 86900; 86901; 86922; 87635; 96360; 96361; 96365; 96375; 99284; J1100; J1650; J2405; J3411; J3475; J3490; P9016; U0003